=== PATIENT | male | born 1980 | race Caucasian/White ===

== ENCOUNTER 2016-06-27 11:03 | Emergency (ER) | payer OTHER ==
[2016-06-27] MEDS ORDERED: ONDANSETRON ODT 4 MG TABLET TL STA (11:35)
[2016-06-27] MEDS ORDERED: ONDANSETRON ODT 4 MG TABLET ONE (12:14)
== END 2016-06-27 13:13 | disposition left against medical advice (07) ==
DX: Z53.21 Procedure and treatment not carried out due to patient leaving prior to being seen by health care provider (principal)
CPT/HCPCS: 36415; 80053; 83690; 85025; Q0162